=== PATIENT | male | born 1980 | race Caucasian/White ===

== ENCOUNTER 2018-06-27 12:41 | Emergency (ER) | payer SELFPAY ==
[~2018-06-27] VITALS: Ht 172.7 cm; Wt 90.7 kg
--- NOTE | 2018-06-27 12:47 | NUR ---
PT AMBULATES TO BED 4
[2018-06-27 12:52] VITALS: BP 124/50
[2018-06-27] MEDS ORDERED: GEMF600T5 PO (12:56)
[2018-06-27] MEDS ORDERED: SIMV40TA5 PO (12:56)
[2018-06-27] MEDS ORDERED: ATEN50TA8 PO (12:56)
[2018-06-27] MEDS ORDERED: ASPI-1718 PO (12:56)
[2018-06-27] MEDS ORDERED: PANT40EC PO (12:56)
[2018-06-27] MEDS ORDERED: LOSA100T51 PO (12:56)
[2018-06-27] MEDS ORDERED: LIDOCAINE 1% 500 MG/50 ML VIAL INJ SCH (13:55)
--- NOTE | 2018-06-27 14:08 | NUR ---
DR. TAVERAS AT BEDSIDE FOR LAC REPAIR.
[2018-06-27] MEDS ORDERED: LIDOCAINE MPF 1% 5mL VIAL ONE (14:14)
[2018-06-27] MEDS ORDERED: BACITRACIN OINT 500 UNITS/GM PKT TP ONE (14:40)
[2018-06-27 14:52] VITALS: BP 124/50
== END 2018-06-27 14:51 | disposition home or self-care (01) ==
LOC: MED 12:41
DX: S71.111A Laceration without foreign body, right thigh, initial encounter (principal); W29.8XXA Contact with other powered hand tools and household machinery, initial encounter; Y93.89 Activity, other specified; Y92.89 Other specified places as the place of occurrence of the external cause; Y99.8 Other external cause status
CPT/HCPCS: 12032; 99284; J2001